=== PATIENT | female | born 1945 | race Caucasian/White ===

== ENCOUNTER → 2016-09-03 | Outpatient (CLI) | payer MEDICARE, BC ==
--- NOTE | 2016-09-06 10:05 | MM ---
Reason for exam: screening (asymptomatic). Last mammogram was performed 1 year ago. History: Patient is postmenopausal. Family history of breast cancer in maternal cousin at age 60, breast cancer in maternal cousin at age 72, and breast cancer in maternal cousin at age 64. Benign MG stereo VAD BX RT of the right breast, September 18, 2015. Benign excisional biopsy of the right breast, November 13, 2001. Benign stereotactic core biopsy of the right breast, October 24, 2000. Core biopsy of the right breast. Physical Findings: A clinical breast exam by your physician is recommended on an annual basis and results should be correlated with mammographic findings. MG 3D Screening Mammo W/Cad Bilateral CC and MLO view(s) were taken. Prior study comparison: September 01, 2015, right breast MG 3d work up w/cad RT. August 26, 2015, bilateral MG 3d screening mammo w/cad. The breast tissue is heterogeneously dense. This may lower the sensitivity of mammography. Finding: There are stable, round, linear calcifications in both breasts. Previous mammotome biopsy in the right breast. No significant changes in finding since September 01, 2015 and August 26, 2015. ASSESSMENT: Benign, BI-RAD 2 RECOMMENDATION: Routine screening mammogram of both breasts in 1 year.
== END | disposition home or self-care (01) ==
LOC: RADMAMWWP 09:00
PROVIDERS: ATTEND Internal Medicine
DX: Z12.31 Encounter for screening mammogram for malignant neoplasm of breast (principal)
CPT/HCPCS: 77063; G0202

== ENCOUNTER → 2017-09-16 | Outpatient (CLI) | payer MEDICARE, BC ==
--- NOTE | 2017-09-19 10:28 | MM ---
Reason for exam: additional evaluation requested from prior study. Last mammogram was performed 1 year ago. History: Patient is postmenopausal. Family history of breast cancer in maternal cousin at age 60, breast cancer in maternal cousin at age 72, and breast cancer in maternal cousin at age 64. Benign MG stereo VAD BX RT of the right breast, September 18, 2015. Benign excisional biopsy of the right breast, November 13, 2001. Benign stereotactic core biopsy of the right breast, October 24, 2000. Core biopsy of the right breast. Physical Findings: Nurse did not find any significant physical abnormalities on exam. MG 3D Diag Mammo W/Cad MICHAELA Bilateral CC and MLO view(s) were taken. LM, CC with magnification, and LM with magnification view(s) were taken of the left breast. Prior study comparison: September 03, 2016, bilateral MG 3d screening mammo w/cad. September 01, 2015, right breast MG 3d work up w/cad RT. There are scattered fibroglandular densities. Finding: There are slowly increasing dystrophic, grouped/clustered calcifications in the upper outer lower inner quadrant of the left breast. New finding since September 03, 2016 and September 01, 2015. These results were verbally communicated with the patient and result sheet given to the patient on 09/16/17. ASSESSMENT: Suspicious, BI-RAD 4 RECOMMENDATION: Stereotactic core biopsy of the left breast. (2 sites) Called Dr. Mcgowan with mammographic findings and has scheduled an appointment for the patient for 09/20/[address] Morrow. PRELIMINARY REPORT CALLED AND FAXED TO DR. MORROW ON 09/19/17.
== END | disposition home or self-care (01) ==
LOC: RADMAMWWP 13:54
PROVIDERS: ATTEND Family Medicine
DX: R92.8 Other abnormal and inconclusive findings on diagnostic imaging of breast (principal)
CPT/HCPCS: 77066; G0279

== ENCOUNTER → 2017-09-26 | Day surgery (SDC) | payer MEDICARE, BC ==
[2017-09-26 07:17] VITALS: RESP 16; BMI 37.1
--- NOTE | 2017-09-26 09:35 | OP ---
OPERATIVE REPORT DATE OF SERVICE: 09/26/2017 PREOPERATIVE DIAGNOSIS: Abnormal mammogram, left breast two areas. POSTOPERATIVE DIAGNOSIS: Abnormal mammogram, left breast two areas. PROCEDURES: Left stereotactic breast biopsy x2 with marker placement. ANESTHESIA: Local anesthetic. COMPLICATIONS: None. SPECIMEN: Breast tissue. GROSS FINDINGS AND PROCEDURE: Meenakshi is a 72-year-old female who presented with a mammogram showing two areas of microcalcifications which are changing for which stereotactic was recommended. She is taken to the stereotactic suite where the area of concern is marked by the radiologist. The breast was prepped with Betadine. Local anesthetic was instilled in the skin and breast tissue. A skin rebecca is made and the needle was advanced to the appropriate depth. Prefire and postfire films were obtained and location A showing good placement. Multiple vacuum-assisted automated cores were then obtained. Specimen mammography showed multiple calcifications present. A marker is placed and needle is withdrawn. The second area which is deep in the breast was then separately prepped and draped. Local anesthetic instilled. A skin rebecca is made. Prefire films were obtained with some discordance. The area is retargeted there was still a slight deviation on the X axis. It was therefore appropriately adjusted on prefire films. The needle was fired. Postfire films showed the needle to be in good position. Multiple vacuum-assisted automated cores were obtained and specimen mammography showed multiple cores containing calcifications. A marker was placed. Needle was withdrawn. Pressure was held. Dressings applied. She is given aftercare instructions. I will see her in the office for pathology on . MMODL / IJN: [id number] /
[2017-09-26 10:03] VITALS: BP 144/79; PULSE 83; TEMP 97.7
--- NOTE | 2017-09-26 16:23 | MM ---
EXAMINATION TYPE: MG stereo VAD BX LT, MG stereo VAD BX addl LT DATE OF EXAM: 09/26/2017 COMPARISON: 09/16/2017 CLINICAL HISTORY: 72-year-old female 2 sites of left breast microcalcifications , referred for biopsy. TECHNIQUE: Stereotactic guided core biopsy of 2 sites in the left breast. FINDINGS: The procedure of stereotactic guided core biopsy was explained to the patient. Benefits, alternatives, and risks were discussed. An informed consent was then obtained. SITE A: Inferior, medial, and more anterior-- The shortness pathway for biopsy was chosen. Shortness pathway was an inferior approach. I performed the localization, then surgeon, Dr. Morrow performed the remainder of the procedure. A vacuum assisted biopsy gun was used to obtain multiple core samples. A biopsy clip was placed. SITE B: Superior, lateral and more posterior-- The shortness pathway for biopsy was chosen. Shortness pathway was a lateral approach. I performed the localization, then surgeon, Dr. Morrow performed the remainder of the procedure. A vacuum assisted biopsy gun was used to obtain multiple core samples. A biopsy clip was placed. The patient tolerated the procedure well without any immediate complication. The patient was kept in the radiology department for short stay after the procedure and then discharged home in stable condition. Targeted calcifications are identified in in both specimen mammogram. Post biopsy mammogram shows both clips to appear in satisfactory position relative to the targeted area of calcifications on the preprocedure images. IMPRESSION: SUCCESSFUL, UNCOMPLICATED STEREOTACTIC GUIDED CORE BIOPSY OF TWO SITES OF MICROCALCIFICATIONS IN THE LEFT BREAST, FULL PATHOLOGY RESULTS TO FOLLOW. Pathology Results: Benign (superior) High Risk (inferior) A. INFERIOR LEFT BREAST, NEEDLE CORE BIOPSIES: PROLIFERATIVE BREAST LESIONS WITHOUT ATYPIA (INTRADUCTAL PAPILLOMATOSIS WITH MILD HYPERPLASIA). COARSE INTRADUCTAL MINERALIZATIONS ARE IDENTIFIED. B. SUPERIOR LEFT BREAST, NEEDLE CORE BIOPSIES: MILD TO MODERATE INTRADUCTAL HYPERPLASIA. COARSE INTRADUCTAL MINERALIZATIONS ARE IDENTIFIED. Recommendation Surgical consult of the left breast. (surgical consult of the inferior lesion can be considered) [email or web address]
== END ==
LOC: RADMAMWWP 07:03
PROVIDERS: ATTEND Surgery
DX: N60.92 Unspecified benign mammary dysplasia of left breast (principal); R92.1 Mammographic calcification found on diagnostic imaging of breast; R92.8 Other abnormal and inconclusive findings on diagnostic imaging of breast
CPT/HCPCS: 88305; 19081; 19082; A4648; J2001

== ENCOUNTER → 2018-10-09 | Outpatient (CLI) | payer MEDICARE, BC ==
--- NOTE | 2018-10-09 10:54 | MM ---
Reason for exam: additional evaluation requested from prior study. Last mammogram was performed 1 year and 1 month ago. History: Patient is postmenopausal and has history of high-risk lesion on a previous biopsy at age 72. Family history of breast cancer in maternal cousin at age 60, breast cancer in maternal cousin at age 72, and breast cancer in maternal cousin at age 64. High risk MG stereo VAD BX addl LT of the left breast, September 26, 2017. High risk MG stereo VAD BX LT of the left breast, September 26, 2017. Benign MG stereo VAD BX RT of the right breast, September 18, 2015. Benign excisional biopsy of the right breast, November 13, 2001. Benign stereotactic core biopsy of the right breast, October 24, 2000. Core biopsy of the right breast. Physical Findings: Nurse did not find any significant physical abnormalities on exam. MG 3D Diag Mammo W/Cad MICHAELA Bilateral CC and MLO view(s) were taken. Prior study comparison: September 16, 2017, bilateral MG 3d diag mammo w/cad MICHAELA. September 03, 2016, bilateral MG 3d screening mammo w/cad. The breast tissue is heterogeneously dense. This may lower the sensitivity of mammography. Benign appearing bilateral calcifications. No suspicious abnormality. Left and right biopsy marker. These results were verbally communicated with the patient and result sheet given to the patient on 10/09/18. ASSESSMENT: Benign, BI-RAD 2 RECOMMENDATION: Routine screening mammogram of both breasts in 1 year.
== END | disposition home or self-care (01) ==
LOC: RADMAMWWP 09:13
PROVIDERS: ATTEND Family Medicine
DX: R92.8 Other abnormal and inconclusive findings on diagnostic imaging of breast (principal); Z85.3 Personal history of malignant neoplasm of breast
CPT/HCPCS: 77066; G0279; 77062

== ENCOUNTER → 2019-08-21 | Outpatient (CLI) | payer MEDICARE, BC | END | disposition home or self-care (01) | LOC: LABWHC1 16:54 | PROVIDERS: ATTEND Orthopaedic Surgery | DX: Z01.812 Encounter for preprocedural laboratory examination (principal) | CPT/HCPCS: 87070 ==

== ENCOUNTER 2019-09-17 08:18 | Day surgery (SDC) | payer MEDICARE, BC ==
[2019-09-07 13:32] VITALS: BMI 35.5
--- NOTE | 2019-09-16 12:00 | HP ---
HISTORY AND PHYSICAL REASON FOR ADMISSION: Surgery is scheduled for 09/17/2019. HISTORY OF PRESENT ILLNESS: Meenakshi Masterson is a 74-year-old patient seen with progressive left knee pain consistent with symptomatic osteoarthritis. Options for treatment were discussed. She elected to proceed with total knee arthroplasty. Consent was obtained. Medical clearance was provided by Dr. Daniel Mcgowan. PAST MEDICAL HISTORY: Hypothyroidism, [id number] diabetes, hypertension. PAST SURGICAL HISTORY: Right total knee arthroplasty. MEDICATIONS: Metformin, Synthroid, Vasotec. ALLERGIES: None. SOCIAL HISTORY: She denies tobacco use. PHYSICAL EXAMINATION: Evaluation of the left knee: Range of motion is -3 to 115. Tenderness along the medial joint line. Crepitus along the medial patellofemoral compartments with range of motion. Pain with patellofemoral compression. Ligaments are stable. Hip rotation without pain. Distal neurovascular exam is intact. RADIOGRAPHS: Radiographs of the left knee reveal severe osteoarthritic changes. IMPRESSION: 1. Left knee osteoarthritis. 2. Hypertension. 3. Hypothyroidism. 4. Cnf-qktqsry-rojitefpe diabetes. PLAN: Left total knee arthroplasty. Surgery is 09/17/2019. MMODL / IJN: [id number] /
[~2019-09-17 08:18] MED LIST: ACETAMINOPHEN TAB 500 MG TAB PO ONE; DEXAMETHASONE SOD PHOSPHATE 10 MG/ML 1 ML VIAL IV ONE; HYDROmorphone 0.5 MG/0.5 ML SYRINGE IVP PRN; LACTATED RINGERS 1,000 ML IV SCH; MELOXICAM 7.5 MG TAB PO ONE; MIDAZOLAM 2 MG/2 ML VIAL IV PRN; ONDANSETRON 4 MG/2 ML VIAL IVP ONE; ROPIVACAINE 0.2%-NS ON-Q PUMP 1,090 MG, EMPTY PAIN BALL 1 EACH MISCELLANE PRN; ROPIVACAINE 246.25 MG, EPINEPHrine 0.5 MG, KETOROLAC 30 MG, cloNIDine HCL/PF 80 MCG, WA... MISCELLANE ONE; TRANEXAMIC ACID 1,000 MG in SODIUM CHLORIDE 0.9% 100 ML IVPB ONE
[2019-09-17] MEDS ORDERED: LIDOCAINE 1% 20 ML VIAL (10MG/ML) FOR IV START INTRADERMA ONE (09:04)
[2019-09-17 09:17] LABS: Glucose,Whole Blood 195 mg/dL (75-99)
[2019-09-17] MEDS ORDERED: MIDAZOLAM 2 MG/2 ML VIAL IVP ONE (09:32)
--- NOTE | 2019-09-17 10:01 | P.ANPRN ---
Procedure Note - Anesthesia - Nerve Block Performed Left Adductor Canal Infusion Time Out Performed: Yes Date of Procedure: 09/17/19 Procedure Start Time: :30 Procedure Stop Time: :47 Location of Patient: PreOp Indication: Acute Post-Operative Pain, Dx/Pain Location, Requested by Surgeon Sedation Type: Sedate with meaningful contact maintained Preparation: Sterile Prep Position: Supine Catheter: Indwelling Needle Types: Pajunk Needle Gauge: 21 Ultrasound used to visualize needle placement: Yes Ultrasound used to observe medication spread: Yes Injectate: 0.5% Ropivacaine (see comment for volume) (20ml) Blood Aspirated: No Pain Paresthesia on Injection Noted: No Resistance on Injection: Normal Image Stored and Saved: Yes Events: Uneventful and Well Tolerated
--- NOTE | 2019-09-17 10:03 | P.ANPRN ---
Procedure Note - Anesthesia - Nerve Block Performed Left Other (see comment) Single Time Out Performed: Yes (IPACK NERVE BLOCK WITH USG) Date of Procedure: 09/17/19 Procedure Start Time: 09:47 Procedure Stop Time: 09:50 Location of Patient: PreOp Indication: Acute Post-Operative Pain, Dx/Pain Location, Requested by Surgeon Sedation Type: Sedate with meaningful contact maintained Preparation: Sterile Prep Position: Right Lateral Catheter: None Needle Types: Pajunk Needle Gauge: 21 Ultrasound used to visualize needle placement: Yes Ultrasound used to observe medication spread: Yes Injectate: 0.5% Ropivacaine (see comment for volume) (15ml) Blood Aspirated: No Pain Paresthesia on Injection Noted: No Resistance on Injection: Normal Image Stored and Saved: Yes Events: Uneventful and Well Tolerated
[2019-09-17] MEDS ORDERED: diphenhydrAMINE 50 MG/ML 1 ML VIAL ONE (10:06)
[2019-09-17] MEDS ORDERED: MIDAZOLAM 2 MG/2 ML VIAL ONE (10:06)
[2019-09-17] MEDS ORDERED: SODIUM CHLORIDE 0.9% 100 ML BAG ONE (10:06)
[2019-09-17] MEDS ORDERED: fentaNYL (PF) 50 MCG/ML 2 ML AMP ONE (10:06)
[2019-09-17] MEDS ORDERED: TRANEXAMIC ACID 1,000 MG/10 ML VIAL ONE (10:06)
[2019-09-17] MEDS ORDERED: ceFAZolin 3,000 MG in SODIUM CHLORIDE 0.9% IRRIGATIO 3,000 ML IRRIGATION ONE (10:40)
[2019-09-17] MEDS ORDERED: LACTATED RINGERS 1,000 ML IV ONE (11:20)
[2019-09-17] MEDS ORDERED: NALOXONE 0.4 MG/ML 1 ML VIAL IV PRN (12:01)
[2019-09-17] MEDS ORDERED: ONDANSETRON 4 MG/2 ML VIAL IVP PRN (12:01)
[2019-09-17] MEDS ORDERED: HYDROcodone/APAP 5-325MG 1 EACH TAB PO PRN ×2 (12:01)
[2019-09-17] MEDS ORDERED: HYDROmorphone 0.5 MG/0.5 ML SYRINGE IVP PRN ×3 (12:01)
--- NOTE | 2019-09-17 12:01 | P.OP ---
Date of Procedure: 09/17/19 Preoperative Diagnosis: Left knee osteoarthritis Postoperative Diagnosis: Left knee osteoarthritis Procedure(s) Performed: Left total knee arthroplasty Implants: 1. Depuy attune size 6 narrow left cruciate retaining cemented femur 2. Depuy attune size 5 fixed bearing cemented tibial baseplate 3. Depuy attune size 6 fixed bearing cruciate retaining 5 mm polyethylene tibial insert 4. Depuy attune 38 mm all polyethylene cemented patella Anesthesia: regional (Adductor canal catheter), local, spinal Surgeon: Iraj Burns Telegraph Operator #1: Anup Barrera Estimated Blood Loss (ml): 35 Pathology: other (Bone) Condition: stable Disposition: PACU Indications for Procedure: 74-year-old patient seen with symptomatic left knee osteoarthritis. After treatment options were discussed, she elected to proceed with total knee a rthroplasty. Operative Findings: see description of procedure Description of Procedure: Patient was taken to the operative suite after having an adductor canal catheter placed by the department of anesthesia. Patient underwent a spinal anesthetic by the department of anesthesia. Patient was given preoperative IV intake antibiotics and TXA. A well-padded tourniquet was placed about the left lower extremity. The lower extremity was then prepped and draped in the normal sterile orthopedic fashion. The extremity was elevated, a tourniquet was insufflated to 300. A standard anterior incision was made sharply through skin. Dissection was taken down through the subcutaneous soft tissues down to the extensor mechanism. A medial arthrotomy was performed, patella was everted and knee was flexed. There was advanced osteoarthritis noted. I introduced my distal intramedullary femoral drill. I then introduced the distal femoral cutting jig. Eladio TRUONG secured the cutting jig with 2 pins. I held retractors in position while Eladio TRUONG performed the distal femoral resection through the guide area we now removed her distal femoral cutting guide. We now placed our 4-in-1 femoral cutting block and positioned and it was secured with 2 pins by Eladio TRUONG while I held the block in position. The distal femoral finishing was now completed. A proximal tibial cutting guide was positioned. I held the guide in the appropriate position with both hands well Eladio TRUONG inserted stabilizing pins into the guide. Proximal tibial cut was made. We now placed a trial femoral component into position, along with an appropriate size tibial tray and insert. We now took the knee through range of motion and had full extension good flexion and good overall soft tissue balance noted. The patella was everted and stabilized with 2 towel clips held by Eladio TRUONG while I performed a flush with patellar quad tendon utilizing a fresh sawblade. We templated the patella, appropriate drill holes were made. An appropriate trial patella was positioned, knee was taken through full range of motion with the patella tracking very nicely. The trial patella was removed. Drill holes were made through the femoral component. All trial components were removed after marking off the appropriate rotation of the tibia. Retractors were now positioned along the proximal tibia. An appropriate keel punch was made with the appropriate size tibial guide by myself on Eladio TRUONG assisted by holding retractors. At this point appropriate size implants were chosen and opened. The joint was irrigated copiously with pulse lavage mechanical irrigation. The posterior capsule was infiltrated with local analgesic. The wound was irrigated with pulse lavage mechanical irrigation. We mixed antibiotic methylmethacrylate. We placed the knee into flexion. We placed multiple retractors assisted by Eladio TRUONG to expose the proximal tibia. Once the methyl methacrylate was ready, the tibial component was cemented into place removing any excess methylmethacrylate form by both myself and Eladio TRUONG. The femoral component was cemented into place removing the removing any excess methylmethacrylate performed by both myself and Eladio TRUONG. We then inserted the appropriate size polyethylene tibial insert. We made sure that it was locked into position. We took the knee into full extension, and then back in a flexion making sure we had removed any excess methylmethacrylate. The patellar component was then cemented down and secured with clamp. Excess methylmethacrylate removed. We kept the knee in full extension, patellar clamp in position until methylmethacrylate had hardened. Once it had hardened the patellar clamp was removed. The knee was taken through full range of motion. The patella tracked nicely. There was good soft tissue balancing. The tourniquet was now released. Additional hemostasis was achieved via electrocautery. A second gram of TXA was given. The wound again was irrigated with pulse lavage mechanical irrigation. The superficial soft tissues were infiltrated local analgesic. The extensor mechanism was repaired with Vicryl. We checked the repair with range of motion and it was stable. The subcutaneous soft tissues were repaired with Vicryl in layers. The skin was approximated with pernio/Dermabond. Sterile dressings were applied followed by loose web roll and Mansoor bandage. The patient was transferred to a bed, and taken to recovery in stable and satisfactory condition. Eladio TRUONG assisted with this complex procedure.
[2019-09-17] MEDS ORDERED: INSULIN ASPART (NovoLOG) 100 UNIT/ML VIAL SQ ONE (12:40)
--- NOTE | 2019-09-17 12:41 | XR ---
EXAMINATION TYPE: XR knee limited LT DATE OF EXAM: 09/17/2019 CLINICAL HISTORY: Left knee pain and arthritis status post total knee replacement. TECHNIQUE: Portable AP and crosstable lateral views of the left knee are obtained immediately postop eratively. COMPARISON: None FINDINGS: Metallic hardware from total left knee arthroplasty is seen and appears satisfactory in al ignment and position. There is evidence of recent surgery with diffuse soft tissue swelling and subc utaneous emphysema noted. IMPRESSION: METALLIC HARDWARE FROM TOTAL LEFT KNEE ARTHROPLASTY IS SATISFACTORY IN ALIGNMENT.
[2019-09-17 12:42] LABS: Glucose,Whole Blood 200 mg/dL (75-99)
[2019-09-17 16:55] LABS: Glucose,Whole Blood 360 mg/dL (75-99)
[2019-09-17] MEDS: LACTATED RINGERS 1,000 ML IV SCH (17:07)
[2019-09-17 20:52] LABS: Glucose,Whole Blood 408 mg/dL (75-99)
[2019-09-17] MEDS: INSULIN ASPART (NovoLOG) 100 UNIT/ML VIAL SQ SCH (20:59)
[2019-09-17] MEDS ORDERED: ATORVASTATIN 10 MG TAB PO SCH (21:00)
[2019-09-17] MEDS ORDERED: LISINOPRIL 20 MG TAB PO SCH (21:00)
[2019-09-17] MEDS ORDERED: METOPROLOL SUCCINATE (ER) 25 MG TAB.ER.24H PO SCH (21:00)
[2019-09-17] MEDS ORDERED: SENNOSIDES-DOCUSATE SODIUM 1 EACH TAB PO SCH (21:00)
[2019-09-17] MEDS ORDERED: INSULIN DETEMIR (LEVEMIR) 100 UNIT/ML SYR SQ SCH (21:00)
[2019-09-18] MEDS: LACTATED RINGERS 1,000 ML IV SCH (01:28)
[2019-09-18] MEDS ORDERED: LEVOTHYROXINE 75 MCG TAB PO SCH (06:30)
--- NOTE | 2019-09-18 06:56 | P.PN ---
Progress Note - Text Progress Note Date: 09/18/19 Postoperative day # 1 status post total knee arthroplasty, under spinal anesthesia, and adductor canal catheter placed for postoperative analgesia, currently at ropivacaine 0.2% 8 mL per hour and continuous infusion, visual analogue scale is 0/10. Assessment and plan= Acute postoperative pain, adductor canal catheter for pain control, pain is well controlled we'll continue the same management.
[2019-09-18 07:38] LABS: Glucose,Whole Blood 148 mg/dL (75-99)
[2019-09-18 07:51] LABS: Basophils # (A) 0.1 k/uL (0-0.2); Basophils % (A) 1 %; Eosinophils % (A) 0 %; HCT 41.5 % (34.0-46.0); Lymphocytes # (A) 2.3 k/uL (1.0-4.8); Lymphocytes % (A) 20 %; MCH 29.6 pg (25.0-35.0); MCHC 31.3 g/dL (31.0-37.0); MCV 94.7 fL (80.0-100.0); Mean Platelet Volume 7.8; Monocytes % (A) 9 %; Neutrophils # (A) 7.9 k/uL (1.3-7.7); Neutrophils % (A) 68 %; Platelet Count 172 k/uL (150-450); RBC 4.38 m/uL (3.80-5.40); RDW 12.6 % (11.5-15.5); WBC 11.6 k/uL (3.8-10.6)
[2019-09-18] MEDS: INSULIN ASPART (NovoLOG) 100 UNIT/ML VIAL SQ SCH ×2 (08:10→12:50)
[2019-09-18] MEDS ORDERED: ENOXAPARIN 30 MG/0.3 ML SYRINGE SQ SCH (09:00)
[2019-09-18] MEDS ORDERED: metFORMIN 500 MG TAB PO SCH (09:00)
[2019-09-18] MEDS ORDERED: MELOXICAM 7.5 MG TAB PO SCH (09:00)
[2019-09-18] MEDS ORDERED: SENNOSIDES-DOCUSATE SODIUM 1 EACH TAB PO SCH (10:15)
--- NOTE | 2019-09-18 10:19 | P.CONS ---
History of Present Illness - Reason for Consult Consult date: 09/18/19 Medical management diabetes mellitus, hypertension, hyperlipidemia Requesting physician: Iraj Burns - Chief Complaint Left knee osteoarthritis - History of Present Illness A 74-year-old female with history of diabetes mellitus, hypertension, hyperlipidemia, sleep apnea, hypothyroidism , status post left total knee arthroplasty for left knee osteoarthritis, failed outpatient conservative treatment. Tolerated procedure well. Pain controlled. Good diet intake with no nausea vomiting or diarrhea. Complains of constipation. Passing flatus. Hyperglycemic last night, diabetic medications have been given late, currently controlled at 148. Denies chest pain, palpitations or shortness of breath. Denies lightheadedness, dizziness or focal deficits. Afebrile, mild elevated WBC 11.6. Vital signs stable Review of Systems Constitutional: Denied any fatigue denied any fever. Cardio vascular: denied any chest pain, palpitations Gastrointestinal denied any nausea vomiting Pulmonary: Denied any shortness of breath cough Neurologic denied any new focal deficits ROS Statement: Those systems with pertinent positive or pertinent negative responses have been documented in the HPI. ROS Other: All systems not noted in ROS Statement are negative. Past Medical History Past Medical History: Diabetes Mellitus, Hyperlipidemia, Hypertension, Sleep Apnea/CPAP/BIPAP, Thyroid Disorder Additional Past Medical History / Comment(s): varicose veins, cpap not used, hiatal hernia, hasimotos disease, History of Any Multi-Drug Resistant Organisms: None Reported Past Surgical History: Breast Surgery, Cholecystectomy, Joint Replacement Additional Past Surgical History / Comment(s): partial thyroidectomy, joy breast biopsy/mamatone clips, rt knee replacement, joy knee arthroscopy Past Anesthesia/Blood Transfusion Reactions: Previous Problems w/ Anesthesia Additional Past Anesthesia/Blood Transfusion Reaction / Comm: states blood pressure dropped in recovery room after thyroid surgery with general anesthesia, after thyroid surgery, had general anesthesia with gallbladder surgery with no problems. Past Psychological History: No Psychological Hx Reported Smoking Status: Never smoker Past Alcohol Use History: None Reported Past Drug Use History: None Reported - Past Family History Mother Family Medical History: No Reported History Medications and Allergies Home Medications Medication Instructions Recorded Confirmed Type Enalapril [Vasotec] 20 mg PO HS 09/21/17 09/17/19 History Insulin Glargine,Hum.rec.anlog 42 units SQ HS 09/21/17 09/17/19 History [Touevelyn Solostar] metFORMIN HCL [Glucophage] 500 mg PO DAILY 09/21/17 09/17/19 History Aspirin/Acetaminophen/Caffeine 1 each PO DIRECTED PRN 09/07/19 09/17/19 History [Excedrin Extra Strength Caplet] Levothyroxine Sodium [Synthroid] 150 mcg PO QAM 09/07/19 09/17/19 History Metoprolol Succinate [Toprol XL] 25 mg PO HS 09/07/19 09/17/19 History Rosuvastatin Calcium [Crestor] 5 mg PO HS 09/07/19 09/17/19 History Allergies Allergy/AdvReac Type Severity Reaction Status Date / Time No Known Allergies Allergy Verified 09/17/19 08:48 Physical Exam Vitals: Vital Signs Temp Pulse Pulse Resp BP BP Pulse Ox 09/18/19 01:42 98.1 F 77 14 148/82 97 09/17/19 20:00 98.3 F 92 16 127/77 09/17/19 19:50 98.3 F 92 16 127/77 09/17/19 17:01 97.8 F 90 17 138/71 97 09/17/19 15:30 88 16 115/56 95 09/17/19 15:00 87 16 107/50 95 09/17/19 14:40 88 16 113/56 95 09/17/19 14:10 86 16 129/64 94 L 09/17/19 13:55 85 16 120/56 97 09/17/19 13:40 85 16 112/56 96 09/17/19 13:25 86 16 110/58 96 09/17/19 13:10 83 16 109/53 97 09/17/19 12:53 80 16 108/54 98 09/17/19 12:38 82 16 115/55 97 09/17/19 12:23 83 16 118/56 95 09/17/19 12:08 98.3 F 91 18 133/60 95 09/17/19 09:50 79 14 153/68 98 09/17/19 08:47 98.3 F 89 15 189/92 95 Intake and Output 09/17/19 09/18/19 09/18/19 22:59 06:59 14:59 Intake Total 600 Output Total 150 Balance 450 Intake: IV 600 Output: Urine 150 Other: # Voids 1 2 Weight 101 kg PHYSICAL EXAM: VITAL SIGNS: [As above] GENERAL: Sitting up in bed, no acute distress HEENT: Conjunctivae normal. eyes normal. Oral mucosa moist NECK: No JVD. No thyroid enlargement. No LNs CARDIOVASCULAR: S1, S2 regular.. No murmur RESPIRATION: Breath sounds diminished in the bases. No rhonchi or crackles. No bronchial breathing. ABDOMEN: Soft, nontender . No guarding. no masses palpable. No ascites, No hepatosplenomegaly.Bowel sounds heard. LEGS: Left knee, dressing clean dry and intact, minimal swelling, positive pulses,calf soft, nontender PSYCHIATRY: Alert and oriented X3, mood and affect normal. NERVOUS SYSTEM: Cranial N 2-12 grossly normal. Moves all 4 limbs. Diffuse weakness No focal deficits. Strength and sensation grossly intact.. Skin: no rash Lymphatic system. No LN neck axilla or groin. Results CBC & Chem 7: 09/18/19 07:24 Labs: Abnormal Lab Results - Last 24 Hours (Table) 09/17/19 09/17/19 09/17/19 Range/Units 09:09 12:37 16:52 POC Glucose (mg/dL) 195 H 200 H 360 H (75-99) mg/dL 09/17/19 Range/Units 20:49 POC Glucose (mg/dL) 408 H (75-99) mg/dL Assessment and Plan Assessment: Left total knee arthroplasty secondary to left knee osteoarthritis, failed conservative treatment. Mild leukocytosis, reactive Diabetes mellitus, hyperglycemic, now controlled Hyperlipidemia Sleep apnea, does not use CPAP Hypothyroidism Plan: Continue on current medication regime ,monitoring and symptomatic treatment. Aggressive pulmonary toileting with incentive spirometer reinforced; she is currently using it every commercial.complains of constipation, Senokot changed to twice a day. Pain management, anticoagulation as per primary. Follow up with Dr. Mcgowan in [address] Burns for the consult. The impression and plan of care has been dictated as directed. : I performed a history and examination of this patient, discussed the same with the dictator. I agree with the dictator's note ,documented as a scribe. Any additional findings or plans will be noted.
[2019-09-18 11:13] VITALS: BP 140/82; PULSE 82; RESP 17; TEMP 98.3
[2019-09-18 11:23] LABS: Glucose,Whole Blood 169 mg/dL (75-99)
[2019-09-18 13:35] LABS: Hemoglobin A1C 12.5 % (4.0-6.0)
--- NOTE | 2019-09-18 13:46 | P.DS ---
Providers Date of admission: 09/17/2019 Expected date of discharge: 09/18/19 Attending physician: Iraj Burns Consults: 09/17/19 12:01 Consult Physician Routine Consulting Provider: Daniel Mcgowan Reason/Comments: Medical management Do you want consulting provider notified?: Yes Primary care physician: Daniel Mcgowan Hospital Course: Date of admission: 09/17/2019 Date of discharge: 09/18/2019 Admission diagnosis: Status post left total knee arthroplasty Discharge diagnosis: Same Attending physician: Dr. Burns Surgical procedures: Left total knee arthroplasty Brief history: Patient is a 74-year-old female with a history of progressive primary left knee osteoarthritis. At this point patient has failed conservative treatment measures and has opted to proceed with a elective left total knee arthroplasty. Hospital course: Details of patient's surgery can be found in operative report. Patient tolerated the procedure well and was subsequently transported to orthopedic floor. Patient's orthopeidc and medical care was provided daily. Patient had daily laboratory tests performed for evaluation of overall blood counts. Patient had daily physical therapy to include strengthening range of motion as well as education with walker ambulation. Patient had daily CPM usage as part of their physical therapy program. Patient was treated with Lovenox for their postoperative DVT prophylaxis during their inpatient stay. Patient was noted to have a relatively uneventful postoperative course. Patient reported satisfactory pain control with oral pain medications by postoperative day 0. Patient showed satisfactory progress with physical therapy. Patient moved steadily through the program and had no difficulty meeting the goals by postoperative day 1. Given patient's otherwise satisfactory course and having met physical therapy goals, plan is to discharge patient home on postoperative day 1. Discharge condition/disposition: Patient will be discharged home in stable condition. Discharge medications: Instructions are given on resumption of patient's normal daily medications per primary care recommendation, in addition patient will be prescribed [place] 5 mg/325 mg, Colace 100 mg, aspirin 81 mg. Discharge instructions: 1. Wound care and infection precautions, keep incision dry and covered while showering, no lotions, creams, moisturizers. No soaking, tubs, pools, hottubs. Do not scrub over the incision. 2. Weight-bear as tolerated with walker / cane until follow-up. 3. Ice and elevate when necessary. Do not exceed 20 minutes per hour with ice pack. 4. Utilize compression sleeve until seen at first follow up appointment. 5. Visiting nursing care. 6. Home physical therapy including home CPM. 7. Pain meds and anticoagulants per prescription. 8. Pain medication has potential to cause constipation. Increase oral fluid and fiber intake. Contact primary care provider if you have not had a bowel movement within 48 hours after discharge 9. No anti-inflammatory medication until discussed at first post operative visit, this including Motrin, Aleve, Mobic, Diclofenac. 10. Follow up in office at 2 weeks postop with Eladio Barrera PA-C 11. Follow up with your primary care doctor 7-10 days after discharge. 12. Contact [facility] with any questions, . Procedures: Left total knee arthroplasty Patient Condition at Discharge: Good Plan - Discharge Summary Discharge Rx Participant: Yes New Discharge Prescriptions: New Aspirin [Adult Low Dose Aspirin EC] 81 mg PO BID #60 tablet. Docomarte [Colace] 100 mg PO DAILY #30 capsule Hydrocodone/Acetaminophen [[place] 5-325] 1 - 2 each PO Q6HR PRN #56 tab PRN Reason: Pain No Action Insulin Glargine,Hum.rec.anlog [Toujeo Solostar] 42 units SQ HS Enalapril [Vasotec] 20 mg PO HS metFORMIN HCL [Glucophage] 500 mg PO DAILY Rosuvastatin Calcium [Crestor] 5 mg PO HS Metoprolol Succinate [Toprol XL] 25 mg PO HS Levothyroxine Sodium [Synthroid] 150 mcg PO QAM Aspirin/Acetaminophen/Caffeine [Excedrin Extra Strength Caplet] 1 each PO DIRECTED PRN PRN Reason: Pain Discharge Medication List Enalapril [Vasotec] 20 mg PO HS 09/21/17 [History] Insulin Glargine,Hum.rec.anlog [Toujeo Solostar] 42 units SQ HS 09/21/17 [History] metFORMIN HCL [Glucophage] 500 mg PO DAILY 09/21/17 [History] Aspirin/Acetaminophen/Caffeine [Excedrin Extra Strength Caplet] 1 each PO DIRECTED PRN 09/07/19 [History] Levothyroxine Sodium [Synthroid] 150 mcg PO QAM 09/07/19 [History] Metoprolol Succinate [Toprol XL] 25 mg PO HS 09/07/19 [History] Rosuvastatin Calcium [Crestor] 5 mg PO HS 09/07/19 [History] Aspirin [Adult Low Dose Aspirin EC] 81 mg PO BID #60 tablet. 09/18/19 [Rx] Docusate [Colace] 100 mg PO DAILY #30 capsule 09/18/19 [Rx] Hydrocodone/Acetaminophen [[place] 5-325] 1 - 2 each PO Q6HR PRN #56 tab 09/18/19 [Rx] Follow up Appointment(s)/Referral(s): [facility], [NON-STAFF] - As Needed Way Medical,Equipment [NON-STAFF] - As Needed (Continous Passive Motion knee machine ) Anup Barrera, PAC [PHYSICIAN BUILDING SERVICES COORDINATOR] - 2 Weeks Activity/Diet/Wound Care/Special Instructions: Orthopedic Discharge Instructions: 1. Wound care and infection precautions, keep incision dry and covered while showering, no lotions, creams, moisturizers. No soaking, pools, hot tubs. Do not scrub over incision. 2. Weight-bear as tolerated with walker / cane until follow-up. 3. Ice and elevate when necessary. Do not exceed 20 minutes per hour with ice pack. 4. Utilize compression sleeve until seen at first follow up appointment. 5. Pain meds and anticoagulants per prescription. 6. Pain medication has potential to cause constipation. Increase oral fluid and fiber intake. Contact primary care provider if you have not had a bowel movement within 48 hours after discharge. 7. No anti-inflammatory medication until discussed at first post operative visit, this including Motrin, Aleve, Mobic, Diclofenac. 8. Follow up in office at 2 weeks postop with Eladio Barrera PA-C 9. Follow up with your primary care doctor 7-10 days after discharge. 10. Contact [facility] with any questions, . Discharge Disposition: HOME WITH HOME HEALTH SERVICES
--- NOTE | 2019-09-18 13:48 | P.PN ---
Subjective Progress Note Date: 09/18/19 Principal diagnosis: status post left total knee arthroplasty Patient is evaluated today at bedside, her is present. She is doing very well at this time, she is really well with therapy. She denies any chest pain, shortness of breath, fever or chills Objective - Vital Signs Vital signs: Vital Signs Temp 98.3 F 09/18/19 07:00 Pulse 82 09/18/19 07:00 Resp 17 09/18/19 07:00 BP 140/82 09/18/19 07:00 Pulse Ox 98 09/18/19 07:00 Intake & Output 09/17/19 09/18/19 09/18/19 18:59 06:59 18:59 Intake Total 1851 Output Total 35 150 Balance 1816 -150 Weight 101 kg Intake: IV 1850 Output: Urine 150 Estimated Blood Loss 35 Other: Voiding Method Toilet # Voids 2 - Exam Left lower extremity: Incision is clean, dry, and intact. The exofin fusion tape is in good condition. There is minimal soft tissue swelling and ecchymosis surrounding the medial and lateral aspects of the incision. Calf is soft, no tenderness with palpation. Plantar flexion, dorsiflexion, EHL, FHL are intact. Sensory exam to light touch throughout the extremity is intact, dorsal pedis pulses 2+. - Labs CBC & Chem 7: 09/18/19 07:24 Labs: Abnormal Lab Results - Last 24 Hours (Table) 09/17/19 09/17/19 09/18/19 Range/Units 16:52 20:49 07:24 WBC (3.8-10.6) k/uL Neutrophils # (1.3-7.7) k/uL POC Glucose (mg/dL) 360 H 408 H (75-99) mg/dL Hemoglobin A1c 12.5 H (4.0-6.0) % 09/18/19 09/18/19 09/18/19 Range/Units 07:24 07:36 11:21 WBC 11.6 H (3.8-10.6) k/uL Neutrophils # 7.9 H (1.3-7.7) k/uL POC Glucose (mg/dL) 148 H 169 H (75-99) mg/dL Hemoglobin A1c (4.0-6.0) % Assessment and Plan Plan: Assessment: Postop day #1 status post left total knee arthroplasty Plan: Pain control, [place] 5 mg/325 mg of discharge GI and DVT prophylaxis, aspirin 81 mg twice a day Wound care instructions discussed Icing elevating techniques discussed Home physical therapy and nursing after discharge Medical recommendations Discharge planning: Patient will be discharged home today Time with Patient: Less than 30
== END 2019-09-18 15:15 | disposition home health service (06) ==
LOC: OR 08:18 → 4SSUR 11:50 → OR 09-18 15:15
PROVIDERS: ATTEND Orthopaedic Surgery
DX: M17.12 Unilateral primary osteoarthritis, left knee (principal); E11.9 Type 2 diabetes mellitus without complications; I10 Essential (primary) hypertension; E78.5 Hyperlipidemia, unspecified; G47.30 Sleep apnea, unspecified; K59.00 Constipation, unspecified; E06.3 Autoimmune thyroiditis; G47.33 Obstructive sleep apnea (adult) (pediatric); E89.0 Postprocedural hypothyroidism; Z99.89 Dependence on other enabling machines and devices; Z79.890 Hormone replacement therapy; Z79.899 Other long term (current) drug therapy; Z79.4 Long term (current) use of insulin; Z90.49 Acquired absence of other specified parts of digestive tract; Z96.651 Presence of right artificial knee joint
CPT/HCPCS: 97161; 64448; 76942; 85025; 88300; 83036; 73560; 27447; C1776; C1713; J2250; J0171; J1200; J1100; J0690 ×3; J2405; J3010; J1885; J1650; J2795 ×2; J0735

== ENCOUNTER → 2020-06-24 | Outpatient (CLI) | payer MEDICARE, BC ==
--- NOTE | 2020-06-25 09:42 | MM ---
Reason for exam: screening (asymptomatic). Last mammogram was performed 1 year and 8 months ago. History: Patient is postmenopausal and has history of high-risk lesion on a previous biopsy at age 72. Family history of breast cancer in maternal cousin at age 60, breast cancer in maternal cousin at age 72, and breast cancer in maternal cousin at age 64. High risk MG stereo VAD BX addl LT of the left breast, September 26, 2017. High risk MG stereo VAD BX LT of the left breast, September 26, 2017. Benign MG stereo VAD BX RT of the right breast, September 18, 2015. Benign excisional biopsy of the right breast, November 13, 2001. Benign stereotactic core biopsy of the right breast, October 24, 2000. Core biopsy of the right breast. Physical Findings: A clinical breast exam by your physician is recommended on an annual basis and results should be correlated with mammographic findings. MG 3D Screening Mammo W/Cad Bilateral CC and MLO view(s) were taken. XCCL view(s) were taken of the right breast. Prior study comparison: October 09, 2018, bilateral MG 3d diag mammo w/cad MICHAELA. September 16, 2017, bilateral MG 3d diag mammo w/cad MICHAELA. The breast tissue is heterogeneously dense. This may lower the sensitivity of mammography. Stable scattered calcifications. There is no discrete abnormality. No significant changes when compared with prior studies. ASSESSMENT: Benign, BI-RAD 2 RECOMMENDATION: Routine screening mammogram of both breasts in 1 year.
== END | disposition home or self-care (01) ==
LOC: RADMAMWWP 13:47
PROVIDERS: ATTEND Family Medicine
DX: Z12.31 Encounter for screening mammogram for malignant neoplasm of breast (principal)
CPT/HCPCS: 77063; 77067

== ENCOUNTER → 2021-09-10 | Outpatient (CLI) | payer MEDICARE, BC ==
--- NOTE | 2021-09-14 09:08 | MM ---
Reason for exam: screening (asymptomatic). Last mammogram was performed 1 year and 3 months ago. History: Patient is postmenopausal and has history of high-risk lesion on a previous biopsy at age 72. Family history of breast cancer in mother at age 94, breast cancer in maternal cousin at age 60, breast cancer in maternal cousin at age 72, and breast cancer in maternal cousin at age 64. High risk MG stereo VAD BX addl LT of the left breast, September 26, 2017. High risk MG stereo VAD BX LT of the left breast, September 26, 2017. Benign MG stereo VAD BX RT of the right breast, September 18, 2015. Benign excisional biopsy of the right breast, November 13, 2001. Benign stereotactic core biopsy of the right breast, October 24, 2000. Core biopsy of the right breast. Physical Findings: A clinical breast exam by your physician is recommended on an annual basis and results should be correlated with mammographic findings. MG 3D Screening Mammo W/Cad Bilateral CC and MLO view(s) were taken. XCCL view(s) were taken of the right breast. Prior study comparison: June 24, 2020, bilateral MG 3d screening mammo w/cad. October 09, 2018, bilateral MG 3d diag mammo w/cad MICHAELA. There are scattered fibroglandular densities. Previous mammotome biopsy in the right and left breast. Multiple groups of microcalcifications redemonstrated, a couple previously biopsied. Post excisional changes and fat necrosis calcifications on the right breast. No significant changes when compared with prior studies. ASSESSMENT: Benign, BI-RAD 2 RECOMMENDATION: Routine screening mammogram of both breasts in 1 year.
== END | disposition home or self-care (01) ==
LOC: RADMAMWWP 11:27
PROVIDERS: ATTEND Family Medicine
DX: Z12.31 Encounter for screening mammogram for malignant neoplasm of breast (principal); Z80.3 Family history of malignant neoplasm of breast; Z78.0 Asymptomatic menopausal state
CPT/HCPCS: 77063; 77067

== ENCOUNTER → 2023-10-19 | Outpatient (CLI) | payer MEDICARE ==
--- NOTE | 2023-10-19 18:00 | CT ---
EXAMINATION TYPE: CT iac wo con CT DLP: 150 mGycm, Automated exposure control for dose reduction was used. DATE OF EXAM: 10/19/2023 3:00 PM INDICATION: Patient age:Female; 78 years old; Reason for study: H92.01 OTALGIA RIGHT EAR; PH[facility]. COMPARISON: None. TECHNIQUE: Multiple thin axial images were obtained through the temporal bones and internal auditory canals. Additional coronal reformatted images were obtained. No IV contrast was utilized. CT Contrast: Contrast used: none. FINDINGS: Right Temporal Bone: External Ear: The external auditory canal is unremarkable, The tympanic membrane is present and unrem arkable. Middle Ear: The ossicles demonstrate a normal appearance. Prussak's space is clear and the scutum i s intact. There is no evidence of osseous erosion and the tegmen tympani is intact. Inner Ear: Cochlea, vestibule and semi circular canals are unremarkable. No evidence of carotid gerardo l dehiscence. Two and a half turns of the cochlea are identified. The vestibular aqueduct is not enl arged. Mastoid Air Cells: The mastoid air cells are clear. The tegmen mastoideum is intact. The aditus ad an trum is clear. Internal Auditory Canal: The internal auditory canal is unremarkable. Left Temporal Bone: External Ear: The external auditory canal is unremarkable, The tympanic membrane is present and unrem arkable. Middle Ear: The ossicles demonstrate a normal appearance. Prussak's space is clear and the scutum i s intact. There is no evidence of osseous erosion and the tegmen tympani is intact. Inner Ear: Cochlea, vestibule and semi circular canals are unremarkable. No evidence of carotid gerardo l dehiscence. Two and a half turns of the cochlea are identified. The vestibular aqueduct is not enl arged. Mastoid Air Cells: The mastoid air cells are clear. The tegmen mastoideum is intact. The aditus ad an trum is clear. Internal Auditory Canal: The internal auditory canal is unremarkable. Other: The right external auditory canal and tragus are relatively symmetric to the left. IMPRESSION: No significant abnormality involving the right external auditory canal and tragus.
== END | disposition home or self-care (01) ==
LOC: RADCTMAIN 14:38
PROVIDERS: ATTEND Family Medicine
DX: H92.01 Otalgia, right ear (principal)
CPT/HCPCS: 70480

== ENCOUNTER → 2023-12-13 | Outpatient (CLI) | payer MEDICARE ==
--- NOTE | 2023-12-14 08:48 | MM ---
Reason for Exam: Screening (asymptomatic). Last screening mammogram was performed 12 month(s) ago. Patient History: Menarche at age 14. First Full-Term at age 25. Postmenopausal. Patient has history of breast feeding. Core Biopsy on the Right side. 09/26/2017, High risk Core Biopsy on the left side. 09/26/2017, High risk Core Biopsy on the left side. 09/18/2015, Benign Core Biopsy on the right side. 11/13/2001, Benign Excisional Biopsy on the right side. 10/24/2000, Benign Stereotactic Core Biopsy on the right side. Maternal cousin had breast cancer, age 60. Maternal cousin had breast cancer, age 72. Maternal cousin had breast cancer, age 64. Mother had breast cancer, age 94. Risk Values: Caitlyn 5 year model risk: 5.0%. NCI Lifetime model risk: 10.0%. Prior Study Comparison: 06/24/2020 Bilateral Screening Mammogram, [facility]. 09/10/2021 Bilateral Screening Mammogram, [facility]. 12/09/2022 Bilateral MG 3D screening mammo w/cad, [facility]. Tissue Density: The breasts are heterogeneously dense, which may obscure small masses. Findings: Analyzed By CAD. Surgical clip is seen in the central right breast. Within the upper outer quadrant there is an area of vertebral distortion. Recommend spot compression view. Benign-appearing calcifications are stable. Loosely grouped calcifications in the central right breast recommend spot magnification views. 2 groups are seen one within the outer and one within the posterior central right breast. Overall Assessment: Incomplete: need additional imaging evaluation, BI-RAD 0 Management: Diagnostic Mammogram of the right breast. . Patient should continue monthly self-breast exams. A clinical breast exam by your physician is recommended on an annual basis. This exam should not preclude additional follow-up of suspicious palpable abnormalities. Note on Caitlyn scores and lifetime risk: 1. A Caitlyn score greater than 3% is considered moderate risk. If this is the case, consider specialist referral to assess eligibility for a risk reducing agent. 2. If overall lifetime risk for the development of breast cancer is 20% or higher, the patient may qualify for future screening with alternating mammogram and breast MRI. Electronically signed and approved by: Erwin Hardy M.D. Radiologis
== END | disposition home or self-care (01) ==
LOC: RADMAMWWP 08:51
PROVIDERS: ATTEND Family Medicine
DX: Z12.31 Encounter for screening mammogram for malignant neoplasm of breast (principal); Z78.0 Asymptomatic menopausal state; Z80.3 Family history of malignant neoplasm of breast
CPT/HCPCS: 77063; 77067

== ENCOUNTER → 2023-12-16 | Outpatient (CLI) | payer MEDICARE ==
--- NOTE | 2023-12-16 11:05 | MM ---
Reason for Exam: Additional evaluation requested from abnormal screening. Last screening mammogram was performed less than 1 month ago. Patient History: Menarche at age 14. First Full-Term at age 25. Postmenopausal. Patient has history of breast feeding. Core Biopsy on the Right side. 09/26/2017, High risk Core Biopsy on the left side. 09/26/2017, High risk Core Biopsy on the left side. 09/18/2015, Benign Core Biopsy on the right side. 11/13/2001, Benign Excisional Biopsy on the right side. 10/24/2000, Benign Stereotactic Core Biopsy on the right side. Maternal cousin had breast cancer, age 60. Maternal cousin had breast cancer, age 72. Maternal cousin had breast cancer, age 64. Mother had breast cancer, age 94. Risk Values: Caitlyn 5 year model risk: 5.0%. NCI Lifetime model risk: 10.0%. Tissue Density: Right: There are scattered areas of fibroglandular density. Findings: Analyzed By CAD. Grouped calcifications within the right breast remain unchanged when compared against areas prior studies. Fat necrosis calcification posterior upper quadrant right breast is also unchanged but some irregular density in this region is increasing. Possible progressive scar formation at the site of excision. Targeted ultrasound recommended. Overall Assessment: Incomplete: need additional imaging evaluation, BI-RAD 0 Management: Diagnostic Breast Ultrasound of the right breast. Electronically signed and approved by: Serena Parker M.D. Radiologist
--- NOTE | 2023-12-16 11:48 | USB ---
Reason for Exam: Additional evaluation requested from abnormal screening. Patient History: Menarche at age 14. First Full-Term at age 25. Postmenopausal. Patient has history of breast feeding. Core Biopsy on the Right side. 09/26/2017, High risk Core Biopsy on the left side. 09/26/2017, High risk Core Biopsy on the left side. 09/18/2015, Benign Core Biopsy on the right side. 11/13/2001, Benign Excisional Biopsy on the right side. 10/24/2000, Benign Stereotactic Core Biopsy on the right side. Maternal cousin had breast cancer, age 60. Maternal cousin had breast cancer, age 72. Maternal cousin had breast cancer, age 64. Mother had breast cancer, age 94. Risk Values: Caitlyn 5 year model risk: 5.0%. NCI Lifetime model risk: 10.0%. Technique: Method: Targeted. Prior Study Comparison: 09/10/2021 Bilateral Screening Mammogram, [facility]. 12/09/2022 Bilateral MG 3D screening mammo w/cad, [facility]. 12/13/2023 Bilateral MG 3D screening mammo w/cad, [facility]. Findings: The upper section of the breast of the right breast, the axilla of the right breast and the retroareolar of the right breast were scanned. Ultrasound right breast 11:00 position, 14 cm from the nipple. Additional scanning of the subareolar region and axilla. At the 11:00 position, there is area of shadowing fat necrosis calcification. No abnormal surrounding soft tissue is seen. No other solid or cystic lesion or axillary lymphadenopathy.. Overall Assessment: Probably benign, BI-RAD 3 Management: Diagnostic Mammogram of the right breast in 6 months. A clinical breast exam by your physician is recommended on an annual basis and results should be correlated with mammographic findings. This exam should not preclude additional follow-up of suspicious palpable abnormalities. Results were given to the patient verbally at the time of exam. Electronically signed and approved by: Serena Parker M.D. Radiologist
== END ==
LOC: RADMAMWWP 09:51
PROVIDERS: ATTEND Family Medicine
DX: R92.321 Mammographic fibroglandular density, right breast (principal); Z78.0 Asymptomatic menopausal state; Z80.3 Family history of malignant neoplasm of breast
CPT/HCPCS: 77065; 76642; G0279; 77061

== ENCOUNTER → 2024-10-16 | Outpatient (CLI) | payer MEDICARE ==
--- NOTE | 2024-10-16 11:10 | MM ---
Reason for Exam: Follow-up at short interval from prior study. Last screening mammogram was performed 10 month(s) ago. Patient History: Menarche at age 14. First Full-Term at age 25. Postmenopausal. Patient has history of breast feeding. Core Biopsy on the Right side. 09/26/2017, High risk Core Biopsy on the left side. 09/26/2017, High risk Core Biopsy on the left side. 09/18/2015, Benign Core Biopsy on the right side. 11/13/2001, Benign Excisional Biopsy on the right side. 10/24/2000, Benign Stereotactic Core Biopsy on the right side. Maternal cousin had breast cancer, age 60. Maternal cousin had breast cancer, age 72. Maternal cousin had breast cancer, age 64. Mother had breast cancer, age 94. Risk Values: Caitlyn 5 year model risk: 5.0%. NCI Lifetime model risk: 9.4%. Prior Study Comparison: 12/09/2022 Bilateral MG 3D screening mammo w/cad, [facility]. 12/13/2023 Bilateral MG 3D screening mammo w/cad, [facility]. 12/16/2023 Right MG 3D work up w/cad RT, [facility]. Tissue Density: Right: The breasts are heterogeneously dense, which may obscure small masses. Findings: Analyzed By CAD. Post lumpectomy changes upper outer right breast posterior one third unchanged. There is a group of calcifications near the lumpectomy site which have increased minimally. Continued six-month follow-up is advised. Additional calcifications within the right breast remain stable. Overall Assessment: Probably benign, BI-RAD 3 Management: Diagnostic Mammogram of both breasts in 6 months. . Results were given to the patient verbally at the time of exam. Patient should continue monthly self-breast exams. A clinical breast exam by your physician is recommended on an annual basis. This exam should not preclude additional follow-up of suspicious palpable abnormalities. Note on Caitlyn scores and lifetime risk: 1. A Caitlyn score greater than 3% is considered moderate risk. If this is the case, consider specialist referral to assess eligibility for a risk reducing agent. 2. If overall lifetime risk for the development of breast cancer is 20% or higher, the patient may qualify for future screening with alternating mammogram and breast MRI. [facility], , 10/16/2024 11:03 AM. Electronically signed and approved by: Sebastian Peña M.D. Radiologis
== END | disposition home or self-care (01) ==
LOC: RADMAMWWP 10:35
PROVIDERS: ATTEND Family Medicine
DX: R92.8 Other abnormal and inconclusive findings on diagnostic imaging of breast (principal); R92.333 Mammographic heterogeneous density, bilateral breasts; Z78.0 Asymptomatic menopausal state; Z80.3 Family history of malignant neoplasm of breast
CPT/HCPCS: 77061; 77065